=== PATIENT | male | born 1980 | race Caucasian/White ===

== ENCOUNTER 2017-11-28 20:19 | Emergency (ER) | payer SELFPAY ==
[2017-11-28 20:44] VITALS: BP 149/75
--- NOTE | 2017-11-28 21:20 | Emergency Department Report ---
ED Upper Extremity Inj HPI - General Chief Complaint: Fall Stated Complaint: FALL/RT ARM INJURY Source: patient Mode of arrival: Ambulatory Limitations: No Limitations - History of Present Illness Initial Comments: This is a 37-year-old male presents with right elbow pain from a fall today. 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 He reports sharp pain and swelling to elbow. He is unable to move elbow. He is able to move fingers and shoulder but is unable to move her right elbow. Patient believe he elbow against the ground when he landed. He denies numbness or tingling, fever, loss of consciousness, hitting, chest pain, or shortness of breath. MD Complaint: Injury to:: right, elbow -: This afternoon Other Injuries: none Handedness: right Place: work Severity scale (0 -10): 10 Improves With: none Worsens With: movement of extremity Context: fall Associated Symptoms: denies other symptoms - Related Data Previous Rx's Medication Instructions Recorded Last Taken Type Ibuprofen [Motrin 800 MG tab] 800 mg PO Q8HR PRN #12 tablet 11/28/17 Unknown Rx methOCARBAMOL [Robaxin TAB] 500 mg PO BID PRN #12 tab 11/28/17 Unknown Rx Allergies Allergy/AdvReac Type Severity Reaction Status Date / Time No Known Allergies Allergy Unverified 11/28/17 20:44 ED Review of Systems ROS: Stated complaint: FALL/RT ARM INJURY Other details as noted in HPI Constitutional: denies: chills, fever Respiratory: denies: cough, shortness of breath, wheezing Cardiovascular: denies: chest pain, palpitations Gastrointestinal: denies: abdominal pain, nausea, diarrhea Musculoskeletal: joint swelling (right elbow), arthralgia (right elbow pain and swelling). denies: back pain Skin: denies: rash, lesions Neurological: denies: headache, weakness, paresthesias Psychiatric: denies: anxiety, depression ED Past Medical Hx - Past Medical History Previous Medical History?: No - Surgical History Past Surgical History?: No - Social History Smoking Status: Never Smoker - Medications Home Medications: Home Medications Medication Instructions Recorded Confirmed Last Taken Type Ibuprofen [Motrin 800 MG tab] 800 mg PO Q8HR PRN #12 tablet 11/28/17 Unknown Rx methOCARBAMOL [Robaxin TAB] 500 mg PO BID PRN #12 tab 11/28/17 Unknown Rx ED Physical Exam - General Limitations: No Limitations General appearance: alert, in no apparent distress - Respiratory Respiratory exam: Present: normal lung sounds bilaterally. Absent: respiratory distress - Cardiovascular Cardiovascular Exam: Present: regular rate, normal rhythm. Absent: systolic murmur, diastolic murmur, rubs, gallop - GI/Abdominal GI/Abdominal exam: Present: soft, normal bowel sounds - Expanded Upper Extremity Exam Right Shoulder Exam: Present: normal inspection, full ROM Upper Arm exam: Present: normal inspection, full ROM Elbow exam: Present: tenderness, swelling, pain w/ pronation/supination, tenderness over radial head. Absent: full ROM (unable to tolerate ROM), abrasion, laceration, ecchymosis, deformity, dislocation, erythema, effusion Forearm Wrist exam: Present: normal inspection, full ROM Hand Wrist exam: Present: normal inspection, full ROM Neuro motor exam: Present: wrist extension intact, thumb opposition intact, thumb IP flexion intact, thumb adduction intact, fingers 2-5 abduction intact Neurosensory exam: Present: radial nerve intact, ulnar nerve intact, median nerve intact Vascular: Present: normal capillary refill, radial pulse (+2) - Neurological Exam Neurological exam: Present: alert, oriented X3 - Psychiatric Psychiatric exam: Present: normal affect, normal mood - Skin Skin exam: Present: warm, dry, intact, normal color. Absent: rash ED Course Vital Signs 11/28/17 20:41 Temperature 98.1 F Pulse Rate 89 Respiratory 18 Rate Blood Pressure 149/75 ED Medical Decision Making - Radiology Data Radiology results: report reviewed, image reviewed FINAL REPORT PROCEDURE: XR ELBOW 2V RT TECHNIQUE: RIGHT elbow radiographs, including AP, lateral, and oblique views. CPT 28601 HISTORY: right elbow pain COMPARISON: No prior studies are available for comparison. FINDINGS: Fracture (s) and/or Dislocation(s): Severe degree comminuted fracture is noted involving the radial head and neck with displacement of the fragments by about 10 - 20 millimeters. There is also a mildly displaced the comminuted fracture of the coronoid process. There is no obvious supracondylar fracture.. Soft tissues: Normal . Bone mineralization: Normal . Foreign bodies: None . IMPRESSION: Comminuted fractures of proximal ends of radius and ulna as described above. - Medical Decision Making Patient was examined by me in the emergency room. Vitals are normal and patient is in no acute distress. Given tramadol 50 mg by mouth once while in ER. Obtained x-ray of right elbow. X-rays dictated by radiologist and no acute findings. Comminuted fractures of proximal ends of radius and ulna as described above. A double sugar tong splint applied to right upper extremity. Patient informed of results. Start ibuprofen and Robaxin for pain from right elbow fracture. Referral to orthopedic surgery. Plan discussed with patient to discharge home and treat outpatient. He agrees with ER plan. Patient discharged home in stable condition. Follow up with PCP in 2-3 days. Critical care attestation.: If time is entered above; I have spent that time in minutes in the direct care of this critically ill patient, excluding procedure time. ED Disposition Clinical Impression: Right elbow pain Elbow fracture, right Qualifiers: Encounter type: initial encounter Fracture type: closed Qualified Code(s): S42.401A - Unspecified fracture of lower end of right humerus, initial encounter for closed fracture Disposition: TO HOME OR SELFCARE Is pt being admited?: No Does the pt Need Aspirin: No Condition: Stable Instructions: Elbow Fracture in Adults (ED) Additional Instructions: Rest Take pain medication every 6 hours as needed for pain. Don't drive or operate heavy machinery while taking muscle relaxers because they may cause drowsiness. Follow-up with orthopedic surgeon for management of elbow fracture. Follow up with Primary Care Provider in 2-3 days. Prescriptions: Ibuprofen [Motrin 800 MG tab] 800 mg PO Q8HR PRN #12 tablet PRN Reason: Pain , Severe (7-10) methOCARBAMOL [Robaxin TAB] 500 mg PO BID PRN #12 tab PRN Reason: Muscle Spasm Referrals: MARGARITA RICHMNOD MD [Staff Physician] - 3-5 Days [facility] [Provider Group] - 3-5 Days [facility] [Outside] - 3-5 Days Forms: Work/School Release Form(ED) Time of Disposition: 22:33 Print Language: KINYARWANDA
[2017-11-28] MEDS ORDERED: ULTRAM PO ONE (21:22)
--- NOTE | 2017-11-28 22:13 | XRay Report ---
FINAL REPORT PROCEDURE: XR ELBOW 2V RT TECHNIQUE: RIGHT elbow radiographs, including AP, lateral, and oblique views. CPT 90314 HISTORY: right elbow pain COMPARISON: No prior studies are available for comparison. FINDINGS: Fracture (s) and/or Dislocation(s): Severe degree comminuted fracture is noted involving the radial head and neck with displacement of the fragments by about 10 - 20 millimeters. There is also a mildly displaced the comminuted fracture of the coronoid process. There is no obvious supracondylar fracture.. Soft tissues: Normal . Bone mineralization: Normal . Foreign bodies: None . IMPRESSION: Comminuted fractures of proximal ends of radius and ulna as described above.
== END 2017-11-28 22:45 | disposition home or self-care (01) ==
LOC: ED 20:19
DX: S52.101A Unspecified fracture of upper end of right radius, initial encounter for closed fracture (principal); S52.001A Unspecified fracture of upper end of right ulna, initial encounter for closed fracture; W17.89XA Other fall from one level to another, initial encounter; Y93.89 Activity, other specified; Y92.89 Other specified places as the place of occurrence of the external cause; Y99.8 Other external cause status
CPT/HCPCS: 99283